=== PATIENT | female | born 1965 | race Caucasian/White ===

== ENCOUNTER 2021-07-24 15:18 | Emergency (ER) | payer SELFPAY ==
[2021-07-24] VITALS (8 sets, daily range): BP systolic 103–135; BP diastolic 65–91
[~2021-07-24] VITALS: Ht 175.3 cm; Wt 58.0 kg
[~2021-07-24 15:18] MED LIST: ACYCLOVIR400 MG PO; ONDANSETRON4 MG PO
[2021-07-24] MEDS ORDERED: METOPROL TAR25 M1 PO (15:38)
[2021-07-24] MEDS ORDERED: THYROID (15:38)
[2021-07-24 15:52] LABS: HEMATOCRIT 43.9 % (37.0-47.0); IMMATURE GRANULOCYTES 0.2 % (0.0-5.0); MEAN CORPUSCULAR HGB 28.6 pG CALC (26.0-32.0); MEAN CORPUSCULAR HGB CONC 31.9 g/dL CAL (32.0-36.0); NEUT# 2.61 thou/uL (2.00-7.15); RED BLOOD COUNT 4.89 mill/uL (4.20-5.60); RED CELL DISTRI WIDTH 11.7 % (11.5-15.5)
[2021-07-24 15:54] LABS: MEAN CELL VOLUME 89.8 fL CALC (80.0-100.0)
[2021-07-24 16:09] LABS: ALBUMIN 4.5 g/dL (3.2-5.0); ALKALINE PHOSPHATASE 75 u/l (38-126); BILIRUBIN, TOTAL 0.3 mg/dL (0.0-1.4); BUN 16 mg/dL (7-17); BUN/CREATININE RATIO 23 (12-20 (CALC)); CHLORIDE 103 mmol/l (95-108); CREATININE 0.7 mg/dL (0.5-1.0); GFR > 60 ML/MIN (>=60 (CALC)); GFR FOR AFR.AMER. > 60 ML/MIN (>=60 (CALC)); POTASSIUM 4.1 mmol/l (3.5-5.1); SGOT/AST 32 u/l (14-36); SODIUM 138 mmol/l (137-146); TOTAL PROTEIN 7.4 g/dL (6.3-8.2)
[2021-07-24 16:15] LABS: ANION GAP 10 (6-22 (CALC)); CARBON DIOXIDE 29 mmol/l (22-30)
[2021-07-24 16:40] LABS: TSH, 3RD GENERATION 4.19 uIU/mL (0.47 - 4.68)
== END 2021-07-24 17:13 | disposition home or self-care (01) | DRG 310 ==
LOC: ED 15:18
PROVIDERS: Family Medicine
DX: R00.2 Palpitations (principal); E21.3 Hyperparathyroidism, unspecified